=== PATIENT | male | born 1965 | race Caucasian/White ===

== ENCOUNTER → 2023-12-17 06:40 | Day surgery (SDC) | payer OTHER, SELFPAY | LOC: GI 06:40 | PROVIDERS: ATTENDING PHYSICIAN Internal Medicine Gastroenterology; FAMILY PHYSICIAN Family Medicine | DX: Z12.11 Encounter for screening for malignant neoplasm of colon (principal); Z80.0 Family history of malignant neoplasm of digestive organs; K64.8 Other hemorrhoids; K57.30 Diverticulosis of large intestine without perforation or abscess without bleeding; D12.2 Benign neoplasm of ascending colon; D12.3 Benign neoplasm of transverse colon | CPT/HCPCS: 45385; 88305 ==